=== PATIENT | female | born 1975 | race Caucasian/White ===

== ENCOUNTER 2023-10-18 23:29 | Emergency (ER) | payer OTHER ==
[~2023-10-18] VITALS: Ht 160 cm; Wt 101.7 kg
[2023-10-19 02:06] VITALS: BP 140/80; PULSE 89; RESP 20; TEMP 97.9; O2SAT 97
[2023-10-19] MEDS ORDERED: AUG875T PO (02:10)
[2023-10-19] MEDS: cefTRIAXone SOD 1,000 MG VL IM ONE (02:17)
[2023-10-19] MEDS: KETOROLAC TROMETH 30 MG/ML 1ML VIAL IM ONE (02:17)
[2023-10-19] MEDS: TETANUS-DIPTH-ACEL PERTUSSIS 0.5ML SYR Tdap IM ONE (02:19)
== END 2023-10-19 02:30 | disposition home or self-care (01) ==
LOC: ER 23:29
DX: S51.832A Puncture wound without foreign body of left forearm, initial encounter (principal); S61.531A Puncture wound without foreign body of right wrist, initial encounter; S50.812A Abrasion of left forearm, initial encounter; S50.811A Abrasion of right forearm, initial encounter; W54.0XXA Bitten by dog, initial encounter; Y93.89 Activity, other specified; Y92.89 Other specified places as the place of occurrence of the external cause; Y99.8 Other external cause status
CPT/HCPCS: 90471; 90715; 96372; 99284; J0696; J1885